=== PATIENT | female | born 1955 | race Caucasian/White ===

== ENCOUNTER → 2019-10-28 14:00 | Outpatient (BNVA) | payer BC, SELFPAY | PROVIDERS: Family Provider Nurse Practitioner; PCP Nurse Practitioner; Visit Provider Obstetrics & Gynecology | DX: Z12.4 Encounter for screening for malignant neoplasm of cervix (principal); Z78.9 Other specified health status; N95.1 Menopausal and female climacteric states | CPT/HCPCS: 88175 ==

== ENCOUNTER 2020-02-09 11:17 | Outpatient (CLI) | payer BC, SELFPAY ==
--- NOTE | 2020-02-09 12:00 | MM_ITS ---
WS: [id number] BILATERAL SCREENING MAMMOGRAM WITH BRAYDEN DISPLACEMENT VIEWS. CAD PERFORMED. HISTORY: Breast Cancer Screening COMPARISON: None available. Bilateral craniocaudal and mediolateral like views are performed. Brayden displacement views in CC and MLO projection also performed. Breasts composition: There are scattered areas of fibroglandular density. Retropectoral implants are intact. On the implant displacement views there is a 6 mm mass in the medi al LEFT breast anteriorly. Close to the 9:00 axis and near midline. No additional suspicious masses. No calcifications. LEFT breast: Spot compression views (CC and MLO). True ML. Ultrasound to follow if abnormality chad morrissey. MM/[place] [id number] IMPRESSION: BI-RADS: 0-Incomplete: Need additional imaging evaluation FOLLOW-UP: Need Additional Imaging
== END 2020-02-09 11:18 | disposition home or self-care (01) ==
PROVIDERS: PCP Nurse Practitioner; Visit Provider Obstetrics & Gynecology
DX: Z12.31 Encounter for screening mammogram for malignant neoplasm of breast (principal); N63.25 Unspecified lump in the left breast, overlapping quadrants
CPT/HCPCS: 77067

== ENCOUNTER 2020-02-21 08:20 | Outpatient (CLI) | payer BC, SELFPAY ==
--- NOTE | 2020-02-21 08:38 | US_ITS ---
WS: [id number] ADDITIONAL VIEWS LEFT MAMMOGRAM LEFT BREAST ULTRASOUND HISTORY: LT BREAST MASS COMPARISON: 02/09/2020 LEFT MAMMOGRAM: Spot compression views and true ML. 6 mm nodule persists at 7:00, 1 cm from the nipple. Nodule is rounded well-circumscribed. LEFT BREAST ULTRASOUND 2-D and color Doppler imaging submitted. Ultrasound directed to the 6-7 o'clock axis. At 7:00, 1 cm from the nipple is a hypoechoic round nodu le measuring 7 x 5 x 7 mm. No significant increased vascularity. Ultrasound-guided biopsy recommended of the LEFT breast mass at 7:00. US/US breast LT limited* [id number] IMPRESSION: BI-RADS: 4A-Suspicious: Low FOLLOW UP: Biopsy Recommended
== END 2020-02-21 08:21 | disposition home or self-care (01) ==
LOC: RADSHAW 08:24
PROVIDERS: Visit Provider Obstetrics & Gynecology
DX: N63.24 Unspecified lump in the left breast, lower inner quadrant (principal)
CPT/HCPCS: 76642; 77065

== ENCOUNTER 2020-02-29 11:55 | Outpatient (CLI) | payer BC, SELFPAY ==
--- NOTE | 2020-02-29 13:00 | US_ITS ---
WS: [id number] ULTRASOUND-GUIDED LEFT BREAST BIOPSY CLINICAL INFORMATION: abnormal mammo COMPARISON: None. FINDINGS: The procedure including risks, benefits, and complications were discussed with the patient who agreed to proceed. Using sterile technique patient was prepped and draped in the usual sterile fashion. Aft er 1% lidocaine utilizing real-time ultrasound guidance 5 14-gauge cores were obtained of the left br east lesion at the 7 o'clock position adjacent to the breast implant. Subsequently a titanium clip wa s placed in the biopsy cavity. No immediate complications. Pathology demonstrates Left breast mass, needle core biopsy: Disrupted intraductal papillary lesion with No surrounding normal breast tissue. Surgical biopsy is recommended for additional tissue sampling. US/[place] [id number] IMPRESSION: 1. Uncomplicated ultrasound-guided left breast biopsy. 2. The pathology demonstrates disrupted intraductal papillary lesion without s urrounding breast tissue. Surgical biopsy recommended BI-RADS: 4B-Suspicious: Intermediate FOLLOW UP: Surgical Biopsy Recommended
== END 2020-02-29 11:56 | disposition home or self-care (01) ==
LOC: RAD 11:58
PROVIDERS: Visit Provider Obstetrics & Gynecology
DX: R92.8 Other abnormal and inconclusive findings on diagnostic imaging of breast (principal); N63.20 Unspecified lump in the left breast, unspecified quadrant
CPT/HCPCS: 19083; 88305; J2001

== ENCOUNTER 2020-03-14 07:09 | Outpatient (CLI) | payer BC, SELFPAY ==
[2020-03-13 14:47] VITALS: BMI 24.6
--- NOTE | 2020-03-14 | US_ITS ---
WS: [id number] ULTRASOUND-GUIDED LEFT BREAST NEEDLE LOCALIZATION CLINICAL INFORMATION: left breast mass FINDINGS: The procedure including risks, benefits, and complications were discussed with the patient who agreed to proceed. Using sterile technique patient was prepped and draped in the usual sterile fashion. Aft er 1% lidocaine utilizing real-time ultrasound guidance a 7 cm Kopan's needle was advanced through th e left breast lesion at the 7 o'clock position. No immediate complications. Ultrasound of the specimen demonstrates gross total resection of the lesion with surrounding tissue. Wire was resected intact. Satisfactory specimen. PATHOLOGY DEMONSTRATES Intraductal papilloma - Focal Atypical ductal hyperplasia - Sclerosing Adenosis - Prior Biopsy site changes - Extensive cautery artifact - No in situ or invasive malignancy identified US/US breast surgical specimen IMPRESSION: 1. Uncomplicated ultrasound-guided left breast needle localization 2. Surgical specimen demonstrates gross total resection with intact wire and l esion visualized with specimen ultrasound 3. Pathology demonstrates intraductal papilloma with FOCAL ATYPICAL DUCTAL HYP ERPLASIA. No in situ or invasive malignancy. BI-RADS: 2-Benign FOLLOW UP: 1 Year Follow-up Note that Atypical ductal hyperplasia is a risk factor for malignancy and r ecommend continued annual screening mammography.
--- NOTE | 2020-03-14 07:34 | US_ITS ---
WS: [id number] ULTRASOUND-GUIDED LEFT BREAST NEEDLE LOCALIZATION CLINICAL INFORMATION: left breast mass FINDINGS: The procedure including risks, benefits, and complications were discussed with the patient who agreed to proceed. Using sterile technique patient was prepped and draped in the usual sterile fashion. Aft er 1% lidocaine utilizing real-time ultrasound guidance a 7 cm Kopan's needle was advanced through th e left breast lesion at the 7 o'clock position. No immediate complications. Ultrasound of the specimen demonstrates gross total resection of the lesion with surrounding tissue. Wire was resected intact. Satisfactory specimen. PATHOLOGY DEMONSTRATES Intraductal papilloma - Focal Atypical ductal hyperplasia - Sclerosing Adenosis - Prior Biopsy site changes - Extensive cautery artifact - No in situ or invasive malignancy identified US/[place] [id number] IMPRESSION: 1. Uncomplicated ultrasound-guided left breast needle localization 2. Surgical specimen demonstrates gross total resection with intact wire and l esion visualized with specimen ultrasound 3. Pathology demonstrates intraductal papilloma with FOCAL ATYPICAL DUCTAL HYP ERPLASIA. No in situ or invasive malignancy. BI-RADS: 2-Benign FOLLOW UP: 1 Year Follow-up Note that Atypical ductal hyperplasia is a risk factor for malignancy and r ecommend continued annual screening mammography.
[2020-03-14] MEDS: sodium chloride 0.9% 1,000 ML 30 ML IV (07:55)
--- NOTE | 2020-03-14 09:00 | ANES.PREANE2 ---
Pre-Anesthetic Assessment Pre-Anesthetic Assessment: Height/Weight: Height 1.64 m Weight 66.224 kg Preop Diagnosis: Intraductal papilloma left breast Proposed Procedure: Operation Date: 03/14/20 10:40 Proposed Procedures p Breast Biopsy Needle Localization 01147 [id number] N63.20(Left) - Seferino Jarquin MD s lumpectomy(Left) - Seferino Jarquin MD Was Beta Franco taken within 24 hours: N/A Last intake: Intake Last Liquid Date 03/13/20 Last Liquid Time 17:30 Last Solid Date 03/13/20 Last Solid Time 17:30 Social: Social History: No alcohol and No tobacco Exam: Pre-Anes Outpt Exam: alert, oriented x 3, clear to auscultation bilaterally and regular rate & rhythm Airway: Submandibular: WNL Cervical ROM: WNL MP: 1 History/ROS: No significant complaints Pulmonary: Pulmonary: None reported CV/HEM: CV/HEM: None reported : : None reported Hepatic: Hepatic: None reported GI: GI: None reported Metabolic: Metabolic: None reported Musc/skel: Musc/skel: None reported Neuropsych: Neuropsych: None reported Anesthetic Plan: ASA status: 1 Anesthesia: General and MAC Meds/Allergies Current Medications: Current Medications Generic Name Dose Route Start Last Admin Trade Name Freq PRN Reason Stop Dose Admin Sodium Chloride 1,000 mls @ 30 ml s/hr 03/14/20 07:45 03/14/20 07:55 Sodium Chloride 0.9% IV 03/15/20 07:44 30 mls/hr .Q24H FLY Administration PFSH Anesthesia PFSH: Medical History Intraductal papilloma of left breast Surgical History S/P breast augmentation S/P right knee surgery S/P tonsillectomy at 14 y/o S/P tubal ligation Family History Sister Breast cancer Heart disease Mother Ovarian cancer Family/Other Breast cancer niece Father Heart disease Grandmother Stroke maternal Other Hyperlipidemia Hypertension Social History Smoking and tobacco status: never smoked Alcohol intake: former Year of sobriety/quit date alcohol: 2019 Data Anesthesia Cardiac Studies: No Data to Display
--- NOTE | 2020-03-14 09:53 | W.PM.OPSUD ---
Surgery/Procedure H&P Update DATE OF PROCEDURE: March 14, 2020 DATE H&P PERFORMED: 03/09/20 H&P UPDATE INFORMATION: I have reviewed H&P completed within last 30 days, I have examined patient prior to procedure and No changes to prior documentation PREOP DIAGNOSIS: Intraductal papilloma left breast PLANNED PROCEDURE: Operation Date: 03/14/20 10:40 Proposed Procedures p Breast Biopsy Needle Localization [id number] N63.20(Left) - Seferino Jarquin MD s lumpectomy(Left) - Seferino Jarquin MD
[2020-03-14] MEDS: lidocaine 1% INJ 20 mL IM (12:01)
[2020-03-14 12:52] VITALS: BP 100/64; PULSE 77; RESP 18; TEMP 36.2; O2SAT 100
[2020-03-14 12:54] VITALS: BP 101/73; PULSE 71; RESP 18; O2SAT 100
[2020-03-14 13:22] VITALS: BP 101/73; PULSE 71; RESP 18; O2SAT 100
--- NOTE | 2020-03-14 13:30 | PM.OP ---
Operative Report Date of procedure: March 14, 2020 Pre-op Diagnosis: Intraductal papilloma left breast Post-op diagnosis: same Procedure Done: Wire localization lumpectomy left breast Ultrasound guidance and interpretation for identifying lesion and lumpectomy Specimens removed/disposition: Left breast mass 12 o'clock position, short stitch superior, long stitch lateral Surgeon: Seferino Jarquin Anesthesia: MAC Estimated blood loss (mL): 10 Condition: stable Disposition: same day Procedure: The wire localization of the mammographic abnormality was performed by the radiologist under ultrasound guidance and the patient was transferred to operating room and placed under MAC after IV antibiotic had been administered. The left breast was prepped and draped in a manner . Ultrasound was used to identify the localization wire as well as the lesion about 1 cm from the nipple. A curvilinear incision was made over the areolar margin at 12'o clock inferior to the marking over the mammographic abnormality, subcutaneous tissue was divided and skin flaps were raised superiorly and inferiorly. The localization wire was grasped through the incision and using electrocautery the wire along with the breast tissue containing mammographic abnormality was dissected free from the surrounding tissue. Using 2-0 silk suture, short stitch was placed superiorly and a long stitch was placed laterally.The wound was irrigated with saline, hemostasis ensured with electrocautery and subcutaneous tissues approximated using 3-0 running Vicryl suture and skin was closed using running subcuticular 4-0 Monocryl sutures and Dermabond. Fluffs were used for pressure dressing. Patient was transferred to recovery room and stable condition The lumpectomy specimens were sent to mammography to obtain radiological confirmation of complete excision of the mammographic abnormality.
== END 2020-03-14 13:42 | disposition home or self-care (01) ==
PROVIDERS: Visit Provider Surgery
DX: D24.2 Benign neoplasm of left breast (principal)
CPT/HCPCS: 12345; 19285; 88305; J0690; J2250; J2704; J3010; J3490; J7030

== ENCOUNTER → 2021-04-04 11:27 | Outpatient (BNVA) | payer MEDICARE, SELFPAY | PROVIDERS: PCP Nurse Practitioner Family; Visit Provider Nurse Practitioner Family | DX: J02.9 Acute pharyngitis, unspecified (principal); R53.83 Other fatigue; Z13.6 Encounter for screening for cardiovascular disorders; Z79.899 Other long term (current) drug therapy; E55.9 Vitamin D deficiency, unspecified; H66.003 Acute suppurative otitis media without spontaneous rupture of ear drum, bilateral; H66.90 Otitis media, unspecified, unspecified ear; B37.0 Candidal stomatitis | CPT/HCPCS: 80053; 80061; 81003; 82306; 83036; 84443; 85025 ==

== ENCOUNTER → 2021-09-04 11:49 | Outpatient (BNVA) | payer MEDICARE, OTHER, SELFPAY | PROVIDERS: PCP Nurse Practitioner Family; Visit Provider Family Medicine | DX: G11.9 Hereditary ataxia, unspecified (principal); J32.9 Chronic sinusitis, unspecified | CPT/HCPCS: 80053; 82607; 84155; 84165; 84443; 85025; 86592 ==

== ENCOUNTER → 2021-09-30 10:37 | Outpatient (BNVA) | payer MEDICARE, SELFPAY | PROVIDERS: PCP Nurse Practitioner Family; Visit Provider Family Medicine | DX: G11.9 Hereditary ataxia, unspecified (principal); J32.9 Chronic sinusitis, unspecified; M25.50 Pain in unspecified joint | CPT/HCPCS: 86160; 86162; 86235; 86255; 86376; 86431 ==

== ENCOUNTER 2021-12-23 11:58 | Outpatient (CLI) | payer MEDICARE, OTHER, SELFPAY ==
--- NOTE | 2021-12-23 12:07 | CT_ITS ---
WS: [id number] CT HEAD TECHNIQUE: Noncontrast CT of the head obtained from the skullbase to the vertex. CLINICAL INFORMATION: G11.9 - Hereditary ataxia, unspecified COMPARISON: None. DLP: 1000.[address] scans at [facility] use at least one of these dose optimization techniques: automated e xposure control; mA and/or kV adjustment per patient size (includes targeted exams where dose is matc hed to clinical indication); or iterative reconstruction. FINDINGS: No evidence of intracranial hemorrhage or mass effect. Ventricular system and basal cisterns are patterson nt. Mild small vessel changes with mild parenchymal volume loss. No extra-axial fluid collections. No evidence of mass or mass effect. Intracranial vascular calcification. Paranasal sinuses and mastoid air cells are well aerated. .Normal visualized soft tissues. CT/CT head wo con* [id number] IMPRESSION: 1. No evidence of intracranial hemorrhage or mass effect. 2. Mild small vessel changes. Mild parenchymal volume loss. No acute intracran ial findings.
== END 2021-12-23 11:59 | disposition home or self-care (01) ==
PROVIDERS: PCP Nurse Practitioner Family; Visit Provider Family Medicine
DX: G11.9 Hereditary ataxia, unspecified (principal)
CPT/HCPCS: 70450

== ENCOUNTER 2021-12-25 06:21 | Outpatient (CLI) | payer MEDICARE, OTHER, SELFPAY ==
--- NOTE | 2021-12-25 06:42 | USCV_ITS ---
Carline Silva Age: 66 Gender: F : 1955 Exam Date: 12/25/2021 06:49 Ordering Phys: Tye Boyd MD Technologist: JOHANA Exam Location: [facility] [place] Indication: ATAXIA Risk Factors: Previous Vascular Surgery: Right Brachial BP: / Left Brachial BP: / Right Left Velocity (cm/s) Spectral Plaque Velocity (cm/s) Spectral Plaque Syst/Diast Broadening Syst/Diast Broadening 65.80/ 20.50 Prox CCA 77.70 / 25.60 80.30/ 24.80 Mid CCA 73.80 / 24.90 73.50/ 26.50 Distal CCA 64.50 / 21.80 42.30/ 19.80 Prox ICA 54.40 / 14.80 68.70/ 27.80 Mid ICA 52.90 / 25.20 77.70/ 31.10 Distal ICA 62.70 / 27.90 64.00 ECA 58.30 0.97 ICA/CCA 0.81 Antegrade Vertebral Antegrade 29.60/ 11.80 cm/s 52.00/ 25.60 cm/s Tri Subclavian Tri 144.4 109.8 0 0 FINDINGS Comparison: none available. No significant elevation of systolic or diastolic velocities. Waveforms are normal. No significant amount of calcified plaque or intimal thickening identified. CONCLUSIONS Normal carotid doppler ultrasound. Dr. Gissel Lloyd DO (Electronically Signed) Final Date: 25 December 2021 07:40 S
== END 2021-12-25 06:22 | disposition home or self-care (01) ==
LOC: RAD 06:23
PROVIDERS: PCP Nurse Practitioner Family; Visit Provider Family Medicine
DX: G11.9 Hereditary ataxia, unspecified (principal)
CPT/HCPCS: 93880

== ENCOUNTER → 2022-02-24 09:41 | Outpatient (BNVA) | payer MEDICARE, OTHER, SELFPAY | PROVIDERS: PCP Nurse Practitioner Family; Visit Provider Nurse Practitioner | DX: R30.0 Dysuria (principal); N39.0 Urinary tract infection, site not specified | CPT/HCPCS: 81000 ==

== ENCOUNTER → 2022-02-27 09:06 | Outpatient (BNVA) | payer MEDICARE, OTHER, SELFPAY | PROVIDERS: PCP Nurse Practitioner Family; Visit Provider Nurse Practitioner Family | DX: M25.531 Pain in right wrist (principal) | CPT/HCPCS: 73110 ==

== ENCOUNTER 2022-03-09 05:23 | Emergency (ER) | payer MEDICARE, OTHER, SELFPAY ==
[2022-03-09 05:33] VITALS: BP 172/87; PULSE 78; RESP 20; TEMP 36.7; O2SAT 99; BMI 23.6
--- NOTE | 2022-03-09 05:45 | XRR_ITS ---
PROCEDURE INFORMATION: Exam: XR Chest Exam date and time: 03/09/2022 5:53 AM Age: 66 years old Clinical indication: Pain; Angina pectoris; Additional info: Cp TECHNIQUE: Imaging protocol: Radiologic exam of the chest. Views: 1 view. COMPARISON: [place] [id number] 02/21/2020 8:54 AM FINDINGS: Lungs: Unremarkable. No consolidation. Pleural spaces: Unremarkable. No pleural effusion. No pneumothorax. Heart/Mediastinum: Unremarkable. No cardiomegaly. Bones/joints: Unremarkable. XR/XR chest 1V portable [id number] IMPRESSION: No acute findings.
--- NOTE | 2022-03-09 05:45 | ECG_ITS ---
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 Measurements Intervals [place] Rate: 71 P: 76 CT: 178 QRS: 76 QRSD: 97 T: 61 QT: 394 QTc: 429 Interpretive Statements SINUS RHYTHM No previous ECG available for comparison Electronically Signed On 03-09-2022 23:35:52 CDT by Artem Langford M.D. [id number]
[2022-03-09 05:52] LABS: Basophils % 0.9 %; Eosinophils # 0.1 10^3/uL (0.0-0.8); Eosinophils % 3.2 %; Hematocrit 41.6 % (37.0-47.0); Hemoglobin 13.5 g/dL (11.5-15.3); Lymphocytes # 1.7 10^3/uL (0.8-4.8); Lymphocytes % 38.7 %; Mean Corpuscular HGB Conc 32.5 g/dL (30.0-36.0); Mean Corpuscular Hemoglobin 30.5 pg (28.0-34.0); Mean Corpuscular Volume 94.1 fl (81-99); Mean Platelet Volume 10.1 fL (7.4-10.4); Monocytes # 0.5 10^3/uL (0.2-0.9); Monocytes % 10.9 %; Neutrophils # 2.02 10^3/uL (1.8-7.7); Neutrophils % 46.1 %; Nucleated Red Blood Cells % 0 %; Platelet Count 261 10^3/cmm (130-400); Red Blood Count 4.42 10^6/uL (4.1-5.3); Red Cell Distribution Width 12.6 % (12.1-15.1); White Blood Count 4.4 10^3/uL (4.0-10.0)
[2022-03-09] MEDS: lidocaine 2% viscous 15 ML, aluminum-mag hydrox-simethicon 30 ML, sucralfate oral liq 1 GM PO (06:05)
[2022-03-09 06:06] LABS: Troponin(5th) Baseline 6 ng/L (0-10)
[2022-03-09 06:14] LABS: Alanine Aminotransferase 10 U/L (0-33); Albumin Level 4.4 g/dL (3.5-5.2); Alkaline Phosphatase 94 IU/L (35-105); Aspartate Amino Transferase 16 U/L (0-32); Blood Urea Nitrogen 16 mg/dL (8-23); Calcium 9.2 mg/dL (8.5-10.5); Carbon Dioxide 27 mmol/L (22-29); Chloride 102 mmol/L (98-107); Creatine Phosphokinase 98 U/L (26-192); Creatinine Clr Calc Pharmacy 64.4375; Globulin 2.3 g/dL (1.3-4.6); Glucose 109 mg/dL (65-115); NT Pro B Type Natriuretic Pept 117 pg/mL (0-125); Osmolality Calculated 290 mOsm/kg (285-295); Sodium 139 mmol/L (136-145); Total Bilirubin 0.6 mg/dL (0.15-1.2); Total Protein 6.7 g/dL (6.6-8.7)
[2022-03-09 06:36] VITALS: BP 169/80; PULSE 74; RESP 16; TEMP 36.7; O2SAT 99
[2022-03-09 06:45] VITALS: BP 143/83; PULSE 65; RESP 15; O2SAT 100
[2022-03-09 07:30] VITALS: BP 137/83; PULSE 60; RESP 15; O2SAT 93
[2022-03-09 07:45] VITALS: BP 153/87; PULSE 65; RESP 14; O2SAT 99
--- NOTE | 2022-03-09 07:45 | ECG_ITS ---
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 Measurements Intervals [place] Rate: 76 P: 79 RI: 186 QRS: 75 QRSD: 98 T: 53 QT: 388 QTc: 437 Interpretive Statements SINUS RHYTHM No previous ECG available for comparison Electronically Signed On 03-09-2022 23:43:04 CDT by Artem Langford M.D. [id number]
--- NOTE | 2022-03-09 18:34 | W.ED.CHESTPA ---
HPI - Chest Pain General: Chief Complaint: Chest Pain Stated Complaint: chest pain Time Seen by Provider: 03/09/22 05:33 Source: patient History of Present Illness: 66-year-old female here with 24 hours of short episodes of chest discomfort. She notes a sharp pain in the center of her chest, and epigastrium that lasts a few seconds and then goes away. They have come as often as every minute, but then seem to space out at times. With continued pain this morning, and increasing frequency, she presents to the ER she denies any other symptoms such as shortness of breath, nausea, vomiting, dizziness or diaphoresis. She has no history of coronary disease MD complaint: chest pain Pertinent past history: other Onset (ago): hour(s) (24) Timing of current episode: episodic Prior episodes: No Onset: during rest Pain location: substernal and epigastric Pain radiation: none Quality: sharp Relieving factors: nothing Exacerbating factors: nothing Associated symptoms: Reports abdominal pain; Deny dyspnea, fever(s), nausea, palpitations or vomiting Review of Systems Const: Denies: fever(s) ENMT: Denies: throat pain Card: Reports: chest pain; Denies: palpitations or irregular heart rhythm Resp: Denies: dyspnea, productive cough or non-productive cough GI: Reports: abdominal pain; Denies: nausea, vomiting or hematemesis Neuro: Denies: dizziness PFSH ED PFSH: Medical History Fatigue Hypertension screen Intraductal papilloma of left breast Oral pharyngeal candidiasis Otitis media Otitis media, unspecified, bilateral Pharyngitis Vitamin D deficiency Surgical History S/P breast augmentation S/P right knee surgery S/P tonsillectomy at 14 y/o S/P tubal ligation Status post left breast lumpectomy (03/14/20) Family History Sister Breast cancer Heart disease Mother Ovarian cancer Family/Other Breast cancer niece Father Heart disease Grandmother Stroke maternal Other Hyperlipidemia Hypertension Social History Smoking and tobacco status: never smoked Alcohol intake: former Year of sobriety/quit date alcohol: 2019 Physical Exam Const: COMMON NORMALS: no acute distress GENERAL APPEARANCE: cooperative and comfortable; not ill appearing HENMT: COMMON NORMALS: normocephalic HEAD & SCALP: normocephalic Eye: COMMON NORMALS: Equal, round and reactive pupils present, EOMs intact bilaterally and conjunctivae normal CONJUNCTIVA: Yes conjunctivae normal PUPIL: Yes Equal, round and reactive pupils present Neck/C-Spine: COMMON NORMALS: full ROM GENERAL: Yes trachea midline Chest: CHEST: Yes Symmetrical chest wall rise Resp: COMMON NORMALS: normal respiratory effort, No use of accessory muscles and clear to auscultation bilaterally AUSCULTATION: clear to auscultation bilaterally Cardio: COMMON NORMALS: regular rate and regular rhythm RATE: regular rate RHYTHM: regular rhythm GI: COMMON NORMALS: Normal to inspection, nondistended, normoactive bowel sounds present, Soft to palpation and non-tender PALPATION: Yes Soft to palpation Extremity: COMMON NORMALS: no pedal edema Neuro: JD COMA SCALE: document GCS findings [place] coma scale eye opening: Spontaneous Jd coma scale verbal response: Orientated Jd coma scale motor response: Obey commands Jd coma scale total score: 15 Course Vital Signs: Vital signs: Vital Signs Temperature 98.0 F 03/09/22 06:36 Pulse Rate 65 03/09/22 07:45 Respiratory Rate 14 03/09/22 07:45 Blood Pressure 153/87 03/09/22 07:45 Pulse Oximetry 99 03/09/22 07:45 MDM - Chest Pain Medical Decision Making 66-year-old female presenting with chest discomfort. These are very short episodes of sharp pain. She was given a GI cocktail in the emergency department, and symptoms are resolved. Her EKG is normal. CBC and BMP are normal. Her troponin is 6. With resolution of her pain after 24 hours, she will be allowed discharge. Lab Data : 03/09/22 05:28 03/09/22 05:28 Radiology Impressions Chest X-Ray 03/09/22 05:45 IMPRESSION: No acute findings. Laboratory Results WBC 4.4 10^3/uL (4.0-10.0) 03/09/22 05:28 RBC 4.42 10^6/uL (4.1-5.3) 03/09/22 05:28 Hgb 13.5 g/dL (11.5-15.3) 03/09/22 05:28 Hct 41.6 % (37.0-47.0) 03/09/22 05:28 MCV 94.1 fl (81-99) 03/09/22 05:28 MCH 30.5 pg (28.0-34.0) 03/09/22 05:28 MCHC 32.5 g/dL (30.0-36.0) 03/09/22 05:28 RDW 12.6 % (12.1-15.1) 03/09/22 05:28 Plt Count 261 10^3/cmm (130-400) 03/09/22 05:28 MPV 10.1 fL (7.4-10.4) 03/09/22 05:28 Neut % (Auto) 46.1 % 03/09/22 05:28 Lymph % (Auto) 38.7 % 03/09/22 05:28 Randall % (Auto) 10.9 % 03/09/22 05:28 Eos % (Auto) 3.2 % 03/09/22 05:28 Baso % (Auto) 0.9 % 03/09/22 05:28 Neut # (Auto) 2.02 10^3/uL (1.8-7.7) 03/09/22 05:28 Lymph # (Auto) 1.7 10^3/uL (0.8-4.8) 03/09/22 05:28 Randall # (Auto) 0.5 10^3/uL (0.2-0.9) 03/09/22 05:28 Eos # (Auto) 0.1 10^3/uL (0.0-0.8) 03/09/22 05:28 Baso # (Auto) 0.0 10^3/uL (0.0-0.1) 03/09/22 05:28 Nucleated RBC % (auto) 0 % 03/09/22 05:28 Nucleated RBCs # 0.0 /100WBC 03/09/22 05:28 Sodium 139 mmol/L (136-145) 03/09/22 05:28 Potassium 4.0 mmol/L (3.5-5.1) 03/09/22 05:28 Chloride 102 mmol/L (98-107) 03/09/22 05:28 Carbon Dioxide 27 mmol/L (22-29) 03/09/22 05:28 Anion Gap 14.0 (5-19) 03/09/22 05:28 BUN 16 mg/dL (8-23) 03/09/22 05:28 Creatinine 0.7 mg/dL (0.5-0.9) 03/09/22 05:28 GFR Calculation 84.0 mL/min (90-130) L 03/09/22 05:28 Glucose 109 mg/dL (65-115) 03/09/22 05:28 Calculated Osmolality 290 mOsm/kg (285-295) 03/09/22 05:28 Calcium 9.2 mg/dL (8.5-10.5) 03/09/22 05:28 Total Bilirubin 0.6 mg/dL (0.15-1.2) 03/09/22 05:28 AST 16 U/L (0-32) 03/09/22 05:28 ALT 10 U/L (0-33) 03/09/22 05:28 Alkaline Phosphatase 94 IU/L (35-105) 03/09/22 05:28 Creatine Kinase 98 U/L (26-192) 03/09/22 05:28 Troponin T Baseline 6 ng/L (0-10) 03/09/22 05:28 NT-Pro-B Natriuret Pep 117 pg/mL (0-125) 03/09/22 05:28 Total Protein 6.7 g/dL (6.6-8.7) 03/09/22 05:28 Albumin 4.4 g/dL (3.5-5.2) 03/09/22 05:28 Globulin 2.3 g/dL (1.3-4.6) 03/09/22 05:28 Discharge Plan Discharge Patient Disposition: Home Clinical Impression: Chest pain Condition: Stable Prescriptions: New Protonix 40 mg tablet,delayed release (DR/EC) 40 mg PO Q12H 10 Days Qty: 20 0RF No Action ascorbate calcium (vitamin C) 500 mg tablet 500 mg PO DAILY 0RF azelastine 137 mcg (0.1 %) aerosol,spray 1 spray intranasal BID Qty: 30 0RF Rx Instructions: administer into each nostril gabapentin 300 mg capsule 300 mg PO BID 90 Days Qty: 180 1RF Rx Instructions: can increase to tid in one week naproxen 250 mg tablet 250 mg PO BID PRN (Reason: pain) 30 Days Qty: 60 0RF nitrofurantoin monohyd/m-cryst [Macrobid] 100 mg capsule 100 mg PO Q12H 7 Days Qty: 14 0RF Rx Instructions: must administer with a meal/food levocetirizine [Xyzal] 5 mg tablet 5 mg PO .nightly PRN (Reason: allergy symptoms) 30 Days Qty: 30 2RF lorazepam [Ativan] 0.5 mg tablet 0.5 mg PO ONCE PRN (Reason: before ct scan) Qty: 1 0RF Rx Instructions: donot drive after taking medication Discharge Orders: Discharge ED (Routine); Ordered 03/09/22 Ordered By: Leander June Discharge Diet: Usual diet Discharge Activity: Resume usual activity Patient Instructions: Chest Pain (ED), Esophageal Spasm (ED) Activity Restrictions/Additional Instructions: Thank you for visiting the emergency department. You are seen and evaluated for chest discomfort. The exact cause of your symptoms is unclear as discussed however may be related to esophageal irritation. Based on risk factors and other factors I believe that safe to send you home. Please follow-up with your primary care provider as they may consider additional outpatient testing including cardiac testing. Please return to the emergency department for worsening symptoms or anything else that you are concerned about affiliates emergency room evaluation. 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
== END 2022-03-09 07:50 | disposition home or self-care (01) ==
PROVIDERS: Emergency Provider Emergency Medicine
DX: R07.9 Chest pain, unspecified (principal); I10 Essential (primary) hypertension
CPT/HCPCS: 71045; 80053; 82550; 83880; 84484; 85025; 93005; 99285

== ENCOUNTER 2022-04-14 14:36 | Outpatient (CLI) | payer MEDICARE, OTHER, SELFPAY ==
--- NOTE | 2022-04-14 15:00 | MM_ITS ---
WS: [id number] BILATERAL 3D TOMOSYNTHESIS DIGITAL SCREENING MAMMOGRAPHY WITH CAD CLINICAL INFORMATION: SCREENING HISTORY: Screening mammogram. No current complaints. COMPARISON: February 21, 2020 TECHNIQUE: Bilateral CC and MLO views. FINDINGS: Stable subpectoral breast implants. Scattered fibroglandular densities bilaterally. A few incidental punctate calcifications. No suspicio us focal mass, asymmetry, calcifications, or architectural distortion. No evidence of malignancy. MM/[place] [id number] IMPRESSION: BI-RADS: 2-Benign FOLLOW UP: 1 Year Follow-up Recommend return to annual screening mammography.
== END 2022-04-14 14:37 | disposition home or self-care (01) ==
LOC: RAD 14:40
PROVIDERS: Visit Provider Family Medicine
DX: Z12.31 Encounter for screening mammogram for malignant neoplasm of breast (principal)
CPT/HCPCS: 77063; 77067

== ENCOUNTER → 2022-10-07 11:06 | Outpatient (BNVA) | payer MEDICARE, OTHER, SELFPAY | PROVIDERS: Referring Provider Family Medicine; Visit Provider Specialist | DX: G62.9 Polyneuropathy, unspecified (principal); R01.1 Cardiac murmur, unspecified; R26.89 Other abnormalities of gait and mobility; F41.9 Anxiety disorder, unspecified | CPT/HCPCS: 99204 ==

== ENCOUNTER 2022-10-31 07:28 | Outpatient (CLI) | payer MEDICARE, OTHER, SELFPAY ==
--- NOTE | 2022-10-31 08:00 | USCV_ITS ---
Carline Silva Age: 67 Gender: F : 1955 Exam Date: 10/31/2022 08:16 Ordering Phys: Elly Castanon MD Technologist: Savita Goins [place] [facility] [place]: cardiac murmur, unspecified BP: 118 / 68 HR: 67 Rhythm: Sinus Technical Quality: Adequate MEASUREMENTS (Male / Female) Normal Values 2D ECHO LV Diastolic Diameter PLAX 2.9 cm 4.2 - 5.9 / 3.9 - 5.3 cm LV Systolic Diameter PLAX 2.1 cm IVS Diastolic Thickness 1.1 cm 0.6 - 1.0 / 0.6 - 0.9 cm IVS Systolic Thickness 1.4 cm LVPW Diastolic Thickness 1.2 cm 0.6 - 1.0 / 0.6 - 0.9 cm LVPW Systolic Thickness 1.3 cm LVOT Diameter 2.0 cm LV Ejection Fraction 2D Teich 57.1 % LV Ejection Fraction MOD 2C 36.6 % LV Ejection Fraction 2C AL 36.3 % LA Diameter 1.9 cm LA Width 3.4 cm LA Height 4.9 cm RA Width 2.4 cm RA Height 3.0 cm Aorta at Sinotubular Diameter 2.8 cm IVC Diameter 1.3 cm M-MODE MV E Point Septal Separation 0.6 cm DOPPLER AV Peak Velocity 129.0 cm/s LVOT Peak Velocity 101.0 cm/s AV Area Cont Eq vti 2.8 cm squared AV Area Cont Eq pk 2.5 cm squared MV Peak Velocity 70.0 cm/s MV Area PHT 3.1 cm squared Mitral E to A Ratio 0.8 MV E' Velocity 53.0 cm/s TR Peak Velocity 177.0 cm/s TR Peak Gradient 12.5 mmHg Right Atrial Pressure 5.0 mmHg Pulmonary Artery Systolic Pressu 17.5 mmHg RV Acceleration Time 0.1 s RV Ejection Time 0.3 s RV AcT/ET 0.3 FINDINGS Left Ventricle Left ventricle is normal in size. LV systolic function is normal with EF of 50 to 55%. No regional wall abnormalities are seen. Grade 1 diastolic dysfunction Right Ventricle Normal in size and function Right Atrium Normal size Left Atrium Normal size Mitral Valve Structurally normal mitral valve. Mild mitral regurgitation. Aortic Valve Structurally normal aortic valve. No significant stenosis or regurgitation Tricuspid Valve Mild tricuspid regurgitation. Pulmonary artery systolic pressure is normal. Pulmonic Valve Not well-visualized Pericardium Normal Aorta Normal in size IVC Appears to be normal CONCLUSIONS LV systolic function is normal with EF of 50 to 55% Grade 1 diastolic dysfunction Mild mitral regurgitation Mild tricuspid regurgitation No comparison studies are available Artem Langford MD (Electronically Signed) Final Date: 02 November 2022 18:51 S
--- NOTE | 2022-10-31 08:06 | MR_ITS ---
WS: [id number] MRI HEAD WITHOUT CONTRAST TECHNIQUE: Sagittal T1, T2 axial, T2 axial FLAIR, axial and coronal T1 images, axial susceptibility w eighted imaging, axial diffusion weighted images, and coronal T2 images were obtained. 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 Ventricular system and basal cisterns are patent. Mild small vessel changes. Mild parenchymal volume loss. Normal posterior fossa. Normal v ascular flow voids at the skull base. No extra-axial fluid collections. No evidence of mass or mass e ffect. No hemosiderin on susceptibly weighted images. Normal optic chiasm and pituitary infundibulum. Normal cavernous sinuses and Meckel's cave. MR/MR head wo con* [id number] IMPRESSION: 1. No evidence of restricted diffusion to suggest acute ischemia. 2. Mild small vessel changes with mild parenchymal volume loss. 3. No hemosiderin on susceptibly weighted images. 4. Mild symmetric atrophy temporal lobes and hippocampal formations. 5. No other acute findings.
== END 2022-10-31 07:29 | disposition home or self-care (01) ==
PROVIDERS: Visit Provider Specialist
DX: R01.1 Cardiac murmur, unspecified (principal); I08.1 Rheumatic disorders of both mitral and tricuspid valves; G60.0 Hereditary motor and sensory neuropathy
CPT/HCPCS: 70551; 93306

== ENCOUNTER → 2022-11-05 10:21 | Outpatient (BNVA) | payer MEDICARE, OTHER, SELFPAY | PROVIDERS: Referring Provider Specialist; Visit Provider Specialist | DX: G62.89 Other specified polyneuropathies (principal) | CPT/HCPCS: 95909 ==

== ENCOUNTER → 2023-01-27 10:01 | Outpatient (BNVA) | payer MEDICARE, OTHER, SELFPAY | PROVIDERS: Visit Provider Specialist | DX: G62.89 Other specified polyneuropathies (principal) | CPT/HCPCS: 99213 ==

== ENCOUNTER → 2023-07-01 13:32 | Outpatient (BNVA) | payer MEDICARE, OTHER, SELFPAY | PROVIDERS: PCP Nurse Practitioner Family; Visit Provider Nurse Practitioner Family | DX: R53.83 Other fatigue (principal); I10 Essential (primary) hypertension; Z13.220 Encounter for screening for lipoid disorders | CPT/HCPCS: 80053; 80061; 84443; 84481; 85025 ==

== ENCOUNTER 2023-07-28 06:00 | Outpatient (RCR) | payer MEDICARE, OTHER, SELFPAY | END 2023-07-30 23:59 | disposition home or self-care (01) | LOC: WPT 06:00 | PROVIDERS: PCP Nurse Practitioner Family; Visit Provider Nurse Practitioner Family | DX: R26.9 Unspecified abnormalities of gait and mobility (principal) | CPT/HCPCS: 97110; 97112; 97161; 97530 ==

== ENCOUNTER 2023-07-31 06:00 | Outpatient (RCR) | payer MEDICARE, OTHER, SELFPAY | END 2023-08-30 23:59 | disposition home or self-care (01) | LOC: WPT 06:00 | PROVIDERS: PCP Nurse Practitioner Family; Visit Provider Nurse Practitioner Family | DX: R26.9 Unspecified abnormalities of gait and mobility (principal) | CPT/HCPCS: 97110; 97112; 97164; 97530 ==

== ENCOUNTER → 2023-08-18 14:04 | Outpatient (BNVA) | payer MEDICARE, OTHER, SELFPAY | PROVIDERS: PCP Nurse Practitioner Family; Referring Provider Nurse Practitioner; Visit Provider Nurse Practitioner Family | DX: L81.4 Other melanin hyperpigmentation (principal); L57.8 Other skin changes due to chronic exposure to nonionizing radiation; D22.5 Melanocytic nevi of trunk; D23.71 Other benign neoplasm of skin of right lower limb, including hip | CPT/HCPCS: 99203 ==

== ENCOUNTER → 2023-09-01 09:30 | Outpatient (BNVA) | payer MEDICARE, OTHER, SELFPAY | PROVIDERS: PCP Nurse Practitioner Family; Visit Provider Nurse Practitioner Family | DX: J01.90 Acute sinusitis, unspecified (principal) | CPT/HCPCS: 80053; 81003 ==

== ENCOUNTER → 2023-10-13 10:37 | Outpatient (BNVA) | payer MEDICARE, OTHER, SELFPAY | PROVIDERS: PCP Nurse Practitioner Family; Visit Provider Nurse Practitioner Family | DX: I10 Essential (primary) hypertension (principal) | CPT/HCPCS: 80053; 80061 ==

== ENCOUNTER 2025-02-27 08:19 | Outpatient (CLI) | payer MEDICARE, OTHER, SELFPAY ==
--- NOTE | 2025-02-27 08:30 | XR_ITS ---
WS: [id number] XR hand RT min 3V* [id number] REASON FOR EXAM: M79.641 - Pain in right hand FINDINGS: No acute fracture or focal bone lesion. No bone erosion or periosteal reaction. Mild to moderate narrowing of the joint spaces with moderate subchondral sclerosis and osteophytosis in the DIP joints of the fingers. Similar arthropathic change in the fifth PIP joint and the 3 joints of the thumb. 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 No acute abnormality.
== END 2025-02-27 08:20 | disposition home or self-care (01) ==
PROVIDERS: PCP Nurse Practitioner Family; Visit Provider Nurse Practitioner Family
DX: M19.041 Primary osteoarthritis, right hand (principal); M25.741 Osteophyte, right hand; R93.6 Abnormal findings on diagnostic imaging of limbs
CPT/HCPCS: 73130

== ENCOUNTER 2025-04-24 09:14 | Outpatient (CLI) | payer MEDICARE, OTHER, SELFPAY ==
--- NOTE | 2025-04-24 | XR_ITS ---
Exam: XR lumbar spine 2-3V* [id number] Date/Time of Exam: 04/24/2025 9:22 AM Reason For Exam: M54.9 - Dorsalgia, unspecified DLP: No acute fracture is noted. There is mild dextroscoliosis. There is osteophyte formation along the LEFT lateral margin of the lumbar spine from L2- L5. Posterior elements are intact. IMPRESSION: 1. No fracture or malalignment. 2. Osteophyte formation along the LEFT margin of the lumbar spine as noted above. Mild dextroscoliosis. MTDD
== END 2025-04-24 09:15 | disposition home or self-care (01) ==
LOC: RAD 09:17
PROVIDERS: PCP Nurse Practitioner Family; Visit Provider Nurse Practitioner Family
DX: M25.78 Osteophyte, vertebrae (principal); M54.9 Dorsalgia, unspecified; R53.83 Other fatigue; Z13.6 Encounter for screening for cardiovascular disorders; M79.641 Pain in right hand; R20.0 Anesthesia of skin; R20.2 Paresthesia of skin; E61.1 Iron deficiency
CPT/HCPCS: 72100; 80053; 82607; 83540; 83550; 84439; 84443; 85025; 86038; 86431

== ENCOUNTER 2025-05-22 06:39 | Outpatient (CLI) | payer MEDICARE, OTHER, SELFPAY ==
--- NOTE | 2025-05-22 07:15 | MR_ITS ---
WS: [id number] MRI LUMBAR SPINE NONCONTRAST HISTORY: M54.9 - Dorsalgia, unspecified COMPARISON: None available. TECHNIQUE: Sagittal and axial multisequence imaging is submitted. Normal lumbar alignment with no compression fractures or marrow edema. Disc spaces and vertebral body heights are well-preserved. Conus terminates normally at L1-2 disc level. L1-L2: No stenosis. Very mild RIGHT facet arthritis. L2-L3: Mild disc bulging with mild facet arthritis. No stenosis. L3-L4: Mild annular disc bulging with mild facet and ligamentum flavum hypertrophy. No significant stenosis. L4-L5: Mild disc bulging with a shallow central and LEFT foraminal disc protrusion. There is mild disc encroachment upon the subarticular recesses and foramen. Mild contact on the L4 and L5 nerve roots. Mild ligamentum flavum and facet arthritis. Mild central, subarticular recess and foraminal stenosis. L5-S1: Mild disc bulging with a central disc protrusion. Central disc protrusion with minimal contact on the S1 nerve roots. Mild facet and ligamentum flavum hypertrophy. No significant foraminal stenosis. Paravertebral soft tissues are negative. Liver is incompletely visualized but appears top normal size. MR/MR lumbar spine wo con* [id number] IMPRESSION: 1. No acute fracture or high-grade central stenosis. 2. L4-5: Shallow central and LEFT foraminal disc protrusions and facet arthrit is. Mild central, subarticular recess and foraminal stenosis. There is mild dis c osteophyte contact on the L4 and L5 nerve roots. 3. Mild central disc protrusion at L5-S1 with minimal contact on the S1 nerve roots.
== END 2025-05-22 06:40 | disposition home or self-care (01) ==
LOC: RAD 06:40
PROVIDERS: PCP Nurse Practitioner Family; Visit Provider Nurse Practitioner Family
DX: M54.9 Dorsalgia, unspecified (principal); R20.0 Anesthesia of skin; M47.816 Spondylosis without myelopathy or radiculopathy, lumbar region; M51.369 Other intervertebral disc degeneration, lumbar region without mention of lumbar back pain or lower extremity pain; M51.360 Other intervertebral disc degeneration, lumbar region with discogenic back pain only; M24.28 Disorder of ligament, vertebrae; M51.26 Other intervertebral disc displacement, lumbar region; M51.86 Other intervertebral disc disorders, lumbar region; M48.061 Spinal stenosis, lumbar region without neurogenic claudication; M99.73 Connective tissue and disc stenosis of intervertebral foramina of lumbar region; M51.16 Intervertebral disc disorders with radiculopathy, lumbar region; M51.27 Other intervertebral disc displacement, lumbosacral region
CPT/HCPCS: 72148

== ENCOUNTER 2025-06-07 08:09 | Outpatient (RCR) | payer MEDICARE, OTHER, SELFPAY | END 2025-06-30 23:59 | disposition home or self-care (01) | LOC: SPT 08:09 | PROVIDERS: Visit Provider Nurse Practitioner Family | DX: M51.369 Other intervertebral disc degeneration, lumbar region without mention of lumbar back pain or lower extremity pain (principal) | CPT/HCPCS: 97161; 97530 ==

== ENCOUNTER → 2025-06-09 10:41 | Outpatient (BNVA) | payer MEDICARE, OTHER, SELFPAY | PROVIDERS: Visit Provider Nurse Practitioner Family | DX: R21 Rash and other nonspecific skin eruption (principal); R20.9 Unspecified disturbances of skin sensation; L29.89 Other pruritus; L81.0 Postinflammatory hyperpigmentation; D23.71 Other benign neoplasm of skin of right lower limb, including hip; L82.1 Other seborrheic keratosis; L81.4 Other melanin hyperpigmentation; L57.8 Other skin changes due to chronic exposure to nonionizing radiation; X32.XXXA Exposure to sunlight, initial encounter; L57.3 Poikiloderma of Civatte | CPT/HCPCS: 99213 ==

== ENCOUNTER 2025-07-01 05:00 | Outpatient (RCR) | payer MEDICARE, OTHER, SELFPAY | END 2025-07-30 23:59 | disposition home or self-care (01) | LOC: SPT 05:00 | PROVIDERS: Visit Provider Nurse Practitioner Family | DX: M51.369 Other intervertebral disc degeneration, lumbar region without mention of lumbar back pain or lower extremity pain (principal) | CPT/HCPCS: 97110; 97530 ==

== ENCOUNTER 2025-07-31 05:00 | Outpatient (RCR) | payer MEDICARE, OTHER, SELFPAY | END 2025-08-08 08:54 | disposition home or self-care (01) | LOC: SPT 05:00 | PROVIDERS: Visit Provider Nurse Practitioner Family | DX: M51.369 Other intervertebral disc degeneration, lumbar region without mention of lumbar back pain or lower extremity pain (principal) | CPT/HCPCS: 97110; 97530 ==